=== PATIENT | male | born 1960 | race Caucasian/White ===

== ENCOUNTER 2018-08-05 07:12 | Inpatient (IN) | payer OTHER ==
[2018-08-05] VITALS (71 sets, daily range): BP systolic 81–129; BP diastolic 46–74
[~2018-08-05] VITALS: Ht 170.2 cm; Wt 99.6 kg
--- NOTE | ~2018-08-05 | 2DMMODE ---
[facility] [address] [place] [address] 2 D/M-MODE ECHOCARDIOGRAM Name: SHAUNA REGAN Room #: 201-P [facility] IN .R.#: [id number] Admission: 08/05/18 Attend Phys: Rosenda Rubalcava MD Discharge: Date of : 62 Date of Service: 08/09/18 1255 Report #: [id number] THIS REPORT FOR: //name// APPROVED REPORT Study performed: 08/09/2018 09:30:39 EXAM: Comprehensive 2D, Doppler, and color-flow Echocardiogram Patient Location: In-Patient Room #: 201 BSA: 2.17 BP: 135/80 mmHg Other Information Study Quality: Technically Difficult Technically limited study due to body habitus, inability to position patient. Indications paroxysmal VT, mildly elevated troponin, Hx CVA 2D Dimensions RVDd: 30.50 mm IVSd: 16.40 (7-11mm) LVOT Diam: 23.91 (18-24mm) LVDd: 54.06 mm PWd: 15.55 (7-11mm) Ascending Ao: 28.19 (22-36mm) LVDs: 39.84 (25-40mm) Aortic Root: 36.76 mm Volumes Left Atrial Volume (Systole) Single Plane 4CH: 55.12 mL Single Plane 2CH: 51.47 mL LA ESV Index: 27.00 mL/m2 Aortic Valve AoV Peak Luís.: 1.26 m/s AO Peak Gr.: 6.34 mmHg LVOT Max P.18 mmHg LVOT Max V: 1.02 m/s GORDO Vmax: 3.64 cm2 Mitral Valve E/A Ratio: 0.6 MV Decel. Time: 148.27 ms [facility] [address] [address] 2 D/M-MODE ECHOCARDIOGRAM Name: SHEREENSHAUNA Room #: 201-P [facility] IN ..#: [id number] Admission: 08/05/18 Attend Phys: Rosenda Rubalcava MD Discharge: Date of : 62 Date of Service: 08/09/18 1255 Report #: [id number] MV E Max Luís.: 0.54 m/s MV A Luís.: 0.91 m/s MV PHT: 43.00 ms IVRT: 159.17 ms Pulmonary Valve PV Peak Luís.: 1.20 m/s PV Peak Gr.: 5.78 mmHg Pulmonary Vein P Vein S: 0.65 m/s P Vein A: 0.12 m/s P Vein D: 0.37 m/s P Vein A Dur.: 90.0 msec P Vein S/D Ratio: 1.76 Left Ventricle The left ventricle is normal size. Moderate concentric left ventricular hypertrophy. The left ventricular systolic function is normal. The left ventricular ejection fraction is within the normal range. LVEF is 60-65%. Mild diastolic dysfunction is present (impaired relaxation pattern). Right Ventricle The right ventricle is normal size. The right ventricular systolic function is normal. Atria The left atrium size is normal. The right atrium size is normal. Aortic Valve The aortic valve is normal in structure. No aortic regurgitation is present. There is no aortic valvular stenosis. Mitral Valve The mitral valve is normal in structure. Trace mitral regurgitation. No evidence of mitral valve stenosis. Tricuspid Valve The tricuspid valve is normal in structure. There is no tricuspid valve regurgitation noted. Unable to assess PA pressure. Pulmonic Valve The pulmonary valve is normal in structure. There is no pulmonic valvular regurgitation. Great Vessels The aortic root is normal in size. IVC is not [facility] [employer] [address] [address] 2 D/M-MODE ECHOCARDIOGRAM Name: SHAUNA REGAN JR Room #: 201-P [facility] IN ..#: [id number] Admission: 08/05/18 Attend Phys: Rosenda Rubalcava MD Discharge: Date of : 62 Date of Service: 08/09/18 1255 Report #: [id number] visualized. Pericardium Trivial pericardial effusion. <Conclusion> The left ventricle is normal size. Moderate concentric left ventricular hypertrophy. The left ventricular systolic function is normal. Mild diastolic dysfunction is present (impaired relaxation pattern). The right ventricle is normal size. The left atrium size is normal. The aortic valve is normal in structure. Trace mitral regurgitation. There is no tricuspid valve regurgitation noted. <ELECTRONICALLY SIGNED> By: Wei Moncada MD 08/09/18 1255 1255 1255 Wei Moncada MD /INF
--- NOTE | ~2018-08-05 | EKG ---
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: JENN : 1960 Requested By: Ángel Johnson Order Number: [id number] MD: Tate Galarza Measurements Intervals [place] Rate: 66 P: 2 MN: 184 QRS: 14 QRSD: 107 T: 210 QT: 479 QTc: 502 Interpretive Statements Sinus rhythm Abnormal T, consider ischemia, diffuse leads Prolonged QT interval Compared to ECG 08/05/2018 07:39:01 Sinus tachycardia no longer present atrial premature complexes no longer present Electronically Signed On 08-06-2018 8:40:50 MIXER ATTENDANT by Tate Galarza [email or web address] <ELECTRONICALLY SIGNED> By: Tate Galarza MD, [facility] 08/06/18 0840 0712 1 Tate Galarza MD, [facility] /EPI
--- NOTE | ~2018-08-05 | H ---
[facility] [address] [place] [address] HISTORY AND PHYSICAL Name: SHAUNA HAILE JR Room #: 247-P ADM IN M.R.#: [id number] Admission: 08/05/18 Attend Phys: Rosenda Rubalcava MD Discharge: Date of : 62 Report #: [id number] THIS REPORT FOR: //name// CC: Tom Clark MD [facility] Brennon De Guzman DO DATE OF SERVICE: 08/05/2018 CHIEF COMPLAINT: Coffee-ground emesis and fever. HISTORY OF PRESENT ILLNESS: The patient is a 58-year-old male who presents at the [facility] Emergency Department with the aforementioned complaints. He is a stroke victim who has currently been residing at [facility], across the street from the hospital. Two episodes of coffee-ground emesis were noted starting at midnight last night and then again this morning and this prompted transfer to the Emergency Department. He was also febrile, I am not sure what his temperature was, but I believe it was greater than 100 degrees Fahrenheit. I spoke with Dr. Scales from the Emergency Department after she had done her initial assessment and stabilization on the patient. He is intubated because of respiratory failure presumably due to aspiration and subsequent respiratory failure. The patient himself is unable to give any useful information as for history at this time. PAST MEDICAL HISTORY: Following diagnoses are obtained from the transfer information obtained from [facility] and this includes gallbladder calculi without cholecystitis or obstruction, generalized muscle weakness, digestive tract surgery apparently, cerebral infarction, oropharyngeal dysphagia, type 2 diabetes mellitus, hypertension, gastrostomy/PEG tube, hemiplegia and hemiparesis apparently on right and left sides, allergic rhinitis, constipation, benign prostate hypertrophy, gastroesophageal reflux disease, hyperlipidemia. ALLERGIES: He has no known drug allergies. MEDICATIONS: Artificial tears, loratadine, senna, oxycodone, vitamin D2, Proscar, aspirin, Robitussin-DM, ranitidine, hydrochlorothiazide, Tylenol, metoprolol succinate, pravastatin, amlodipine, bisacodyl suppositories, MiraLax, Coumadin 2.5 mg daily. SOCIAL HISTORY: Other than that the patient is currently living at [facility], I have no social history and cannot obtain any from the patient at this time. [address] [address] HISTORY AND PHYSICAL Name: SHAUNA HAILE JR Room #: 247-P [facility] IN .R.#: [id number] Admission: 08/05/18 Attend Phys: Rosenda Rubalcava MD Discharge: Date of : 62 Report #: [id number] FAMILY HISTORY: I cannot obtain any from the patient at this time. On the facility face sheet from [facility], there are 2 names, Ken Haile [phone], and Amilcar Haile at [phone] for point of contacts, the former is his responsible constitution party. SPECIAL DIET: The patient is on a regular diet with nectar thickened liquids. There is an order for CPR within the contained physician's orders, which I will assume means that the patient has a full code blue status. REVIEW OF SYSTEMS: Unobtainable. PHYSICAL EXAMINATION: VITAL SIGNS: In the Emergency Room on arrival on 15 liters per minute of oxygen (nonrebreather), the oxygen saturation is 87%. Presumably that was prior to intubation. Temperature was 37.3 degrees centigrade, pulse 112, respirations 39 and blood pressure is 112/70. The weight is recorded at 200 pounds. GENERAL: The patient is a middle-aged male who is moderately sedated on the ventilator. He tracks with his eyes and sometimes nods appropriately to questions. NECK: Without adenopathy or thyromegaly or mass. LUNGS: Coarse bilaterally. CARDIAC: Reveals regular rhythm with frequent extrasystoles. ABDOMEN: Soft. PEG tube is in place. EXTREMITIES: Without cyanosis or clubbing or peripheral edema. Good peripheral pulses. He is able to move both lower extremities on command. NEUROLOGIC: Very limited because of the patient's status on the ventilator. This will have to be repeated later. SKIN: Warm to touch at the time of my examination. DIAGNOSTIC DATA: Reviewing telemetry while the patient was having a PICC line placement, he would have runs of 10, 12 or 15 beats of ventricular tachycardia and when that was concluded, he returned to normal sinus rhythm, borderline tachycardic with a rate of 90-100 per minute. EKG shows sinus tachycardia with minimal signs of inferior ischemia. Arterial blood gas shows a pH of 7.366, borderline acidotic with a pCO2 of 33.7, pO2 of 81.6 on the ventilator with respiratory rate of 16, tidal volume of 550, PEEP of 5 and the FiO2 of 60%. The lactic acid level is elevated at 2.89 with a normal of 0-2 millimoles per liter. The chemistry showed a sodium of 140, potassium 3.2, chloride 102, bicarbonate 26, BUN of 33, creatinine 1.6, anion gap is 12. The estimated GFR is 45. The glucose is 199, calcium 8.8, total bilirubin 0.6, AST 17, ALT 15, alkaline phosphatase 73, total protein of 7.7, albumin 3.4. The PT and INR were 40.0 and 3.9 respectively. The PTT was 57.0. CBC shows a white blood cell count of 9300 with no bands on the differential. The hemoglobin is 14.5, hematocrit 43.5, mean cell volume is 77.8, which is microcytic. [facility] [address] [place] [address] HISTORY AND PHYSICAL Name: SHAUNA HAILE Room #: 247-P ADM IN ..#: [id number] Admission: 08/05/18 Attend Phys: Rosenda Rubalcava MD Discharge: Date of : 62 Report #: [id number] is 17.6, which shows proliferative changes consistent with active bone marrow and the platelet count is 208,000. Chest x-ray shows patchy left perihilar and basilar predominantly pulmonary patchy infiltrate suggesting multifocal pneumonia or possibly aspiration in the appropriate setting with probable small layering left pleural effusion. Endotracheal placement is shown to be 2 cm above the mallika. ASSESSMENT AND PLAN: 1. Upper gastrointestinal hemorrhage with secondary aspiration pneumonitis and acute respiratory failure -- Dr. Scales did an excellent job in the Emergency Room stabilizing the patient and getting control of the airway. Dr. De Guzman has been contacted and will be planning to do an endoscopy on the patient tomorrow morning. In the meantime, serial hematology and coagulation studies will be performed to make sure that the patient remains un-anticoagulated until the procedure. At this time, a transfusion does not appear necessary; however, significant dilutional affect is expected given the hypotension that was noted on presentation in the face of bleeding. The patient has been given fresh frozen plasma and vitamin K in the Emergency Department and will receive supplemental doses of each as needed. The patient has been started on intravenous antibiotic therapy with a broad spectrum, is being tested for methicillin-resistant Staphylococcus aureus, and he is intubated and will be seeing the graphics production specialist, Dr. Lopez, in the ICU for further attention to ventilator management. 2. Abnormal EKG with inferior ischemic changes -- I have nothing to compare this with previously and the patient does not have a known history of coronary artery disease. I will get serial cardiac enzymes and a followup EKG in the morning. He does not appear to be in congestive heart failure at this time, but as noted, he has ischemic changes on his baseline EKG here and he had some runs of ventricular tachycardia during the PICC line placement. His case would become particularly high risk, as if it is not already, if he develops any evidence of coronary ischemia. He is not a good candidate for anticoagulation or aggressive antiplatelet therapy at this time. 3. Type 2 diabetes -- sliding scale and serial Accu-Cheks will be pursued. 4. History of hyperlipidemia, gastroesophageal reflux disease, cholelithiasis, prior stroke and oropharyngeal dysphagia are noted and will be managed. 5. Apparent lactic acidosis. We will get a repeat arterial blood gas tomorrow morning prior to permitting the patient to go to upper gastrointestinal endoscopy. I have discussed this case briefly with Dr. Lopez and with Dr. Scales in the Emergency Room and the patient's care will be assumed tomorrow by my colleague, Dr. Rosenda Rubalcava, who manages the patient's care at [facility]. [address] [place] [address] HISTORY AND PHYSICAL Name: SHAUNA HAILE JR Room #: 247-P [facility] IN M.R.#: [id number] Admission: 08/05/18 Attend Phys: Rosenda Rubalcava MD Discharge: Date of : 62 Report #: [id number] At this time, the patient's code status remains full code blue. <ELECTRONICALLY SIGNED> By: Ángel Johnson MD 08/05/18 1447 1316 1401 Ángel Johnson MD /nt
--- NOTE | ~2018-08-05 | HC ---
[facility] [place] [address] CONSULTATION Name: SHAUNA REGAN JR Room #: 247-P ADM IN M.R.#: [id number] Admission: 08/05/18 Attend Phys: Rosenda Rubalcava MD Discharge: Date of : 62 Report #: [id number] THIS REPORT FOR: //name// CC: Brennon Rubalcava DATE OF SERVICE: 08/06/2018 REASON FOR CONSULTATION: I was asked to evaluate concerning healthcare-associated pneumonia. HISTORY OF PRESENT ILLNESS: The patient was a 58-year-old, previous stroke with diabetes, hypertension, snf resident, who presents with coffee-ground emesis associated with fever over 100 degrees. He developed hypotension and is now on vasopressors. He is intubated on FiO2 of 40%. He was awake and able to respond appropriately. Unable to give any further details of his history. He did undergo upper endoscopy, which showed evidence of hiatal hernia with esophageal ulcer as well as gastritis with erosions, duodenitis with erosions. No evidence of active bleeding identified. His hemoglobin dropped from 14 down to 10. He has remained afebrile since his hospitalization yesterday. He is on FiO2 of 40% with minimal tracheal secretions. His chest x-ray showed a left lower lobe infiltrate. His procalcitonin was 7. REVIEW OF SYSTEMS: Ten-point was unable to be completed for the patient was unable to give any details. PAST MEDICAL HISTORY: Cholelithiasis, stroke, diabetes, hypertension, PEG tube placement for dysphagia, constipation, BPH, gastroesophageal reflux, hyperlipidemia. ALLERGIES: None. MEDICATIONS: As noted on his NOV, now including vancomycin and Zosyn. FAMILY HISTORY: Noncontributory. SOCIAL HISTORY: senior care resident. Unclear if he is a smoker or not. PHYSICAL EXAMINATION: GENERAL APPEARANCE: The patient was awake. He was on vasopressors. He was obese. No evidence of peripheral cyanosis. Appeared his stated age. VITAL SIGNS: As noted with currently afebrile on low dose Levophed for blood pressure 117/74 with a MAP of 77, pulse is 69. SKIN: Without lesion or decubitus. No palpable lymphadenopathy. EYES: Without scleral icterus or conjunctivitis. MOUTH: Orally intubated without mucositis or ulcer. [address] [address] CONSULTATION Name: SHAUNA REGAN Room #: 247-P [facility] IN M.R.#: [id number] Admission: 08/05/18 Attend Phys: Rosenda Rubalcava MD Discharge: Date of : 62 Report #: [id number] NECK: Supple with no thyromegaly, mass or JVD. LUNGS: Coarse breath sounds in the left base posteriorly. HEART: Regular, without murmur, gallop or rub. ABDOMEN: Soft, nontender, no hepatosplenomegaly or mass. PEG tube in the left upper abdomen. Site was without drainage or erythema. EXTREMITIES: Without cyanosis, clubbing or edema. NEUROLOGIC: Cranial nerves appeared intact as much as I could evaluate. He was able to move both upper and lower extremities. Sensation to touch was normal. Mood, unable to assess. EXTERNAL GENITALIA: Without mass or lesion with indwelling Emery catheter. LABORATORY STUDIES: Chest x-ray with left lower lobe mid lung infiltrate. Blood, urine and sputum cultures pending. Sodium 142, potassium 3.4, bicarbonate 25, creatinine 0.9. Liver function tests normal. Troponin 0.3. Procalcitonin 7. INR 1.1. Hemoglobin 10, platelet count 155,000, WBC 7 with 85% segs, 11% lymphs. MRSA screen negative. Urinalysis negative. IMPRESSION: 1. A 58-year-old, previous stroke with left lung pneumonia, healthcare associated. 2. Gastrointestinal bleed with anemia. 3. Diabetes. 4. Esophagitis, gastritis, duodenitis with ulcerations. 5. Mild increase in troponin, likely reactive to stress. 6. Gastroesophageal reflux. 7. Obesity. RECOMMENDATION: We will continue IV antibiotic therapy with Zosyn and azithromycin. His MRSA screen was negative. Check legionella, strep pneumo antigens. Follow up chest x-ray and follow CBC. <ELECTRONICALLY SIGNED> By: Nick Perkins MD 08/07/18 1534 1052 1105 Nick Perkins MD /nt
--- NOTE | ~2018-08-05 | PATH ---
[facility] [address] [place] [address] PATHOLOGY RPT PROCEDURE Name: ALEXANDER HAILE JR Room #: 201-P ADM IN M.R.#: [id number] Admission: 08/05/18 Date of : 62 Discharge: Report #: [id number] Path Case #: [id number] [facility] Accession Number: [id number] . 01 Material submitted: . ESOPHAGEAL ULCER BIOPSY . 01 Clinical history: . Pre-OP DX: GI bleed Post-OP DX: Hiatal hernia, esophageal ulcer, gastric erosions, duodenitis . 02 Diagnosis: Squamous mucosa, esophageal ulcer, endoscopic biopsy: - Mild acute esophagitis. - Negative for intestinal metaplasia or dysplasia. (IUV:briana; 08/07/2018) MBR/08/07/2018 . 02 Comment: S fungal special stain is attempted on block A1 and it shows no tissue present. There are no viral inclusions or fungal hyphae identified histologically. There is no dysplasia or malignancy present as well. (IUV:anesthesiologist/physician; 08/07/2018) . 02 Electronically signed: . Doris Armas MD, Pathologist NPI- [id number] . 01 Gross description: . Received in formalin labeled "Alexander Haile Jr, BX of esophageal ulcer," are 2 segments of kaur soft tissue measuring 0.5 x 0.2 x 0.1 cm in aggregate dimensions and ranging from 0.2 to 0.3 cm in maximum dimension. The specimen is submitted entirely in cassette A1. (TSD; 08/06/2018) TOB/TOB . 02 Pathologist provided ICD-10: K20.9 . 02 CPT . 317657 Specimen Comment: A courtesy copy of this report has been sent to Specimen Comment: [phone], . Specimen Comment: Report sent to / DR SNIDER Specimen Comment: A duplicate report has been generated due to demographic updates. Performed at: [address] [place] [address] PATHOLOGY RPT PROCEDURE Name: ALEXANDER HAILE Room #: 201-P [facility] IN M.R.#: [id number] Admission: 08/05/18 Date of : 62 Discharge: Report #: [id number] Path Case #: [id number] [facility] Kika Moncada [address] [place] [address] [address], [id number] MD Pedrito Weiss MD Phone: [phone] Performed at: [address] [id number] MD Doris Armas MD Phone: [phone]
--- NOTE | ~2018-08-05 | EKG ---
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 : 1960 Requested By: Shaye Scales Order Number: [id number] MD: Matthew Vasquez Measurements Intervals [place] Rate: 109 P: 18 IN: 161 QRS: -3 QRSD: 89 T: 197 QT: 333 QTc: 449 Interpretive Statements Sinus tachycardia Low voltage, extremity leads Abnormal T, consider ischemia, diffuse leads No previous ECG available for comparison Electronically Signed On 08-05-2018 23:48:11 INTERNAL SALES ENGINEER by Matthew Vasquez [email or web address] <ELECTRONICALLY SIGNED> By: Matthew Vasquez MD 08/05/18 2348 8 8 Matthew Vasquez MD /NADIA
[2018-08-05 07:46] LABS: ABSOLUTE NEUTROPHILS 7.9 thou/uL (1.4-8.2); BASOPHILS 0.2 % (0.0-2.0); HEMATOCRIT 43.5 % (42.0-52.0); HEMOGLOBIN 14.5 gm/dL (14.0-18.0); MCH 25.9 pg (26.0-34.0); MCHC 33.3 g/dL (28.0-37.0); MCV 77.8 fL (80.0-100.0); MONOCYTES 3.4 % (1.0-8.0); PLATELET COUNT 208 thou/uL (150-400); POLYS 85.4 % (36.0-66.0); RBC 5.59 mil/uL (4.50-6.00); RDW 17.6 % (10.5-14.5); WBC 9.3 thou/uL (4.0-11.0)
[2018-08-05] MEDS ORDERED: SENNA8.6 MG PO (07:48)
[2018-08-05] MEDS ORDERED: CLARITIN10 MG PO (07:48)
[2018-08-05] MEDS ORDERED: ROBITUSSIN100 MG/53 PO (07:49)
[2018-08-05] MEDS ORDERED: OXYCODONE HCL 55 MG PO (07:49)
[2018-08-05] MEDS ORDERED: PROSCAR 5MG TABL5 MG PO (07:49)
[2018-08-05] MEDS ORDERED: VITAMIN D250000 UNIT PO (07:49)
[2018-08-05] MEDS ORDERED: ASPIR 8181 MG PO (07:49)
[2018-08-05] MEDS ORDERED: HYDROCHLOROTH12.5 M1 PO (07:50)
[2018-08-05] MEDS ORDERED: APAP650 PO (07:50)
[2018-08-05] MEDS ORDERED: KAPSPARGO SPRIN50 MG PO (07:50)
[2018-08-05] MEDS ORDERED: PRAVACHOL40 MG PO (07:50)
[2018-08-05] MEDS ORDERED: ZANTAC 150MG T150 MG PO (07:50)
[2018-08-05] MEDS ORDERED: BISACODYL SUPP10 MG RECTAL (07:51)
[2018-08-05] MEDS ORDERED: NORVASC2.5 MG PO (07:51)
[2018-08-05] MEDS ORDERED: COUMADIN 2.5MG2.5 M1 PO (07:51)
[2018-08-05] MEDS ORDERED: MIRALAX17 GM PO (07:51)
[2018-08-05 07:55] LABS: CALCIUM 8.8 mg/dL (8.5-10.1); CREATININE 1.6 mg/dL (0.7-1.3); POTASSIUM 3.2 mmol/L (3.5-5.1)
[2018-08-05 07:56] LABS: INR 3.9
[2018-08-05 08:00] LABS: ALBUMIN 3.4 g/dL (3.4-5.0); TOTAL BILIRUBIN 0.6 mg/dL (<0.1-1.0); TOTAL PROTEIN 7.7 g/dL (6.4-8.2)
[2018-08-05 09:57] LABS: BE(vivo) -5.5 mmol/L (-2 to +3); HCO3 18.9 mmol/L (22.0-26.0); PCO2 33.7 mmHg (35.0-45.0); PO2 81.6 mmHg (80.0-100.0); pH 7.366 (7.360-7.450); sO2 95.8 % (92.0-98.0)
[2018-08-05 13:26] LABS: HEMATOCRIT 38.4 % (42.0-52.0); HEMOGLOBIN 12.6 gm/dL (14.0-18.0)
[2018-08-05 13:39] LABS: PROTIME 18.7 Seconds (9.3-11.4)
[2018-08-05 13:40] LABS: INR 1.8
[2018-08-05 20:38] LABS: INR 1.3; PROTIME 13.3 Seconds (9.3-11.4)
[2018-08-05 21:23] LABS: CREATININE 1.3 mg/dL (0.7-1.3); POTASSIUM 3.8 mmol/L (3.5-5.1)
[2018-08-05 21:26] LABS: INR 1.2; PROTIME 12.6 Seconds (9.3-11.4)
[2018-08-05 22:41] LABS: URINE BILIRUBIN NEGATIVE (Negative); URINE BLOOD 3+ (Negative); URINE CLARITY CLOUDY; URINE COLOR YELLOW; URINE GLUCOSE-RANDOM* NEGATIVE (Negative); URINE KETONES TRACE (Negative); URINE LEUKOCYTES 1+ (Negative); URINE NITRITE NEGATIVE (Negative); URINE PROTEIN (DIPSTICK) 1+ (Negative); URINE SPECIFIC GRAVITY >= 1.030 (1.005-1.035); URINE UROBILINOGEN 0.2 E.U./dl (0.2-1.0)
[2018-08-05 22:48] LABS: MUCUS 0-3 Light strn/LPF (None Seen); RENAL EPITHELIAL CELLS 0-3 Few /LPF (None Seen); SQUAMOUS None Seen /LPF (0-3); TRANSITIONAL EPITHEL CELL 4-10 Moderate /LPF (None Seen); WBC CLUMPS Occasional (None Seen)
[2018-08-05 22:49] LABS: AMORPHOUS URATES Many /LPF (None Seen); BACTERIA 1-9 Few /HPF (None Seen); CASTS None Seen /LPF (None Seen); CRYSTALS None Seen /LPF (None Seen); URINE RBC 3-10 Few /HPF (0-2); URINE WBC 6-15 Few /HPF (0-5)
[2018-08-06] VITALS (170 sets, daily range): BP systolic 92–134; BP diastolic 45–90
[2018-08-06 03:47] LABS: BE(vivo) -3.2 mmol/L (-2 to +3); HCO3 20.6 mmol/L (22.0-26.0); PCO2 32.8 mmHg (35.0-45.0); PO2 80.5 mmHg (80.0-100.0); pH 7.416 (7.360-7.450); sO2 96.2 % (92.0-98.0)
[2018-08-06 05:53] LABS: HEMATOCRIT 31.3 % (42.0-52.0); MCH 25.5 pg (26.0-34.0); MCHC 32.5 g/dL (28.0-37.0); MCV 78.4 fL (80.0-100.0); RBC 3.99 mil/uL (4.50-6.00); RDW 17.7 % (10.5-14.5)
[2018-08-06 05:54] LABS: HEMOGLOBIN 10.2 gm/dL (14.0-18.0)
[2018-08-06 05:59] LABS: CREATININE 0.9 mg/dL (0.7-1.3); POTASSIUM 3.4 mmol/L (3.5-5.1)
[2018-08-06 06:03] LABS: INR 1.1
[2018-08-06 06:08] LABS: TROPONIN-I 0.31 ng/mL (<0.06)
[2018-08-06 09:37] LABS: HEMATOCRIT 29.9 % (42.0-52.0)
[2018-08-06 09:45] LABS: INR 1.1
[2018-08-07] VITALS (33 sets, daily range): BP systolic 80–121; BP diastolic 35–66
[2018-08-07 04:14] LABS: CALCIUM 7.6 mg/dL (8.5-10.1); CREATININE 0.9 mg/dL (0.7-1.3)
[2018-08-07 04:20] LABS: PROTIME 10.3 Seconds (9.3-11.4)
[2018-08-07 04:30] LABS: HEMATOCRIT 29.1 % (42.0-52.0); HEMOGLOBIN 9.4 gm/dL (14.0-18.0); MCH 25.5 pg (26.0-34.0); MCHC 32.2 g/dL (28.0-37.0); MCV 79.2 fL (80.0-100.0); RBC 3.67 mil/uL (4.50-6.00); RDW 17.9 % (10.5-14.5)
[2018-08-07 09:49] LABS: HEMATOCRIT 25.9 % (42.0-52.0); HEMOGLOBIN 8.6 gm/dL (14.0-18.0)
[2018-08-07 11:01] LABS: HCO3 21.2 mmol/L (22.0-26.0); PCO2 34.4 mmHg (35.0-45.0); PO2 145.4 mmHg (80.0-100.0); pH 7.407 (7.360-7.450); sO2 98.9 % (92.0-98.0)
[2018-08-07 13:27] LABS: MAGNESIUM 2.3 mg/dL (1.8-2.4); TROPONIN-I 0.19 ng/mL (<0.06)
[2018-08-07 13:31] LABS: POTASSIUM 2.9 mmol/L (3.5-5.1)
[2018-08-07 19:44] LABS: MAGNESIUM 1.9 mg/dL (1.8-2.4); POTASSIUM 3.2 mmol/L (3.5-5.1)
[2018-08-08] VITALS (19 sets, daily range): BP systolic 89–137; BP diastolic 53–84
[2018-08-08 04:05] LABS: PROTIME 10.8 Seconds (9.3-11.4)
[2018-08-08 04:21] LABS: HEMATOCRIT 27.9 % (42.0-52.0); HEMOGLOBIN 9.4 gm/dL (14.0-18.0); MCH 26.4 pg (26.0-34.0); MCHC 33.8 g/dL (28.0-37.0); MCV 78.2 fL (80.0-100.0); RBC 3.57 mil/uL (4.50-6.00); RDW 17.4 % (10.5-14.5); WBC 8.7 thou/uL (4.0-11.0)
[2018-08-08 04:25] LABS: CALCIUM 7.5 mg/dL (8.5-10.1); CREATININE 0.6 mg/dL (0.7-1.3); POTASSIUM 4.1 mmol/L (3.5-5.1)
[2018-08-08 09:57] LABS: HEMATOCRIT 28.6 % (42.0-52.0); HEMOGLOBIN 9.5 gm/dL (14.0-18.0)
[2018-08-09 00:20] VITALS: BP 168/72
[2018-08-09 02:10] LABS: ADENOVIRUS Negative (Negative); INFLUENZA A Negative (Negative); INFLUENZA B Negative (Negative); METAPNEUMOVIRUS Negative (Negative); PARAINFLUENZA 1 Negative (Negative); PARAINFLUENZA 2 Negative (Negative); PARAINFLUENZA 3 Negative (Negative); RHINOVIRUS Negative (Negative); RSV A Negative (Negative); RSV B Negative (Negative)
[2018-08-09 03:25] VITALS: BP 130/80
[2018-08-09 07:58] VITALS: BP 135/80
[2018-08-09 10:55] VITALS: BP 142/88
[2018-08-09 11:34] LABS: HEMATOCRIT 32.7 % (42.0-52.0); HEMOGLOBIN 10.6 gm/dL (14.0-18.0)
[2018-08-09 19:56] VITALS: BP 144/90
[2018-08-10 04:21] LABS: HEMATOCRIT 32.2 % (42.0-52.0); HEMOGLOBIN 10.5 gm/dL (14.0-18.0); MCH 25.7 pg (26.0-34.0); MCHC 32.6 g/dL (28.0-37.0); RBC 4.07 mil/uL (4.50-6.00); RDW 17.5 % (10.5-14.5); WBC 8.3 thou/uL (4.0-11.0)
[2018-08-10 04:37] LABS: CALCIUM 8.1 mg/dL (8.5-10.1); CREATININE 0.7 mg/dL (0.7-1.3); POTASSIUM 3.6 mmol/L (3.5-5.1)
[2018-08-10 04:47] LABS: PROTIME 18.1 Seconds (9.3-11.4)
[2018-08-10 04:50] LABS: INR 1.7
[2018-08-10 05:27] VITALS: BP 138/88
[2018-08-10 16:00] VITALS: BP 137/84
[2018-08-10 19:20] VITALS: BP 137/82
[2018-08-11 03:50] VITALS: BP 127/78
[2018-08-11 04:49] LABS: HEMATOCRIT 32.3 % (42.0-52.0); HEMOGLOBIN 10.8 gm/dL (14.0-18.0)
[2018-08-11 08:20] VITALS: BP 135/67
[2018-08-11 11:51] VITALS: BP 142/74
[2018-08-11 16:31] VITALS: BP 137/72
[2018-08-11 20:45] VITALS: BP 134/68
[2018-08-12 05:25] VITALS: BP 125/81
[2018-08-12 05:42] LABS: HEMATOCRIT 31.9 % (42.0-52.0); HEMOGLOBIN 10.6 gm/dL (14.0-18.0); MCH 26.1 pg (26.0-34.0); MCHC 33.3 g/dL (28.0-37.0); MCV 78.4 fL (80.0-100.0); RBC 4.07 mil/uL (4.50-6.00); RDW 17.7 % (10.5-14.5)
[2018-08-12 05:52] LABS: PROTIME 32.5 Seconds (9.3-11.4)
[2018-08-12 05:53] LABS: CALCIUM 8.4 mg/dL (8.5-10.1); CREATININE 0.8 mg/dL (0.7-1.3); POTASSIUM 3.8 mmol/L (3.5-5.1)
[2018-08-12 05:58] LABS: INR 3.1
[2018-08-12 07:22] VITALS: BP 125/79
[2018-08-12 08:18] LABS: HEMATOCRIT 32.5 % (42.0-52.0); HEMOGLOBIN 10.7 gm/dL (14.0-18.0)
[2018-08-12 11:40] VITALS: BP 132/69
[2018-08-12] MEDS ORDERED: METRONIDAZOLE500 M4 PER TUBE (12:59)
[2018-08-12] MEDS ORDERED: AMOXICILLI250 MG/51 PER TUBE (12:59)
[2018-08-12] MEDS ORDERED: IPRAT-ALBUT 0.5-3 ML INH (13:00)
[2018-08-12] MEDS ORDERED: COUMADIN 2 MG TA2 M1 PO (13:00)
[2018-08-12] MEDS ORDERED: PANTOPRAZOLE SO40 M1 PO (13:02)
[2018-08-12 15:43] VITALS: BP 150/86
== END 2018-08-12 17:54 | DRG 871 ==
LOC: ER 07:12 → ICU 09:56 → EROBS 09:56 → ICU 10:35 → 2N 08-08 17:36
PROVIDERS: Hospitalist; Internal Medicine; Internal Medicine Infectious Disease; Internal Medicine Pulmonary Disease; Specialist; Student in an Organized Health Care Education/Training Program
DX: A41.9 Sepsis, unspecified organism (principal); J69.0 Pneumonitis due to inhalation of food and vomit; J96.01 Acute respiratory failure with hypoxia; K22.11 Ulcer of esophagus with bleeding; K25.4 Chronic or unspecified gastric ulcer with hemorrhage; K26.4 Chronic or unspecified duodenal ulcer with hemorrhage; K29.91 Gastroduodenitis, unspecified, with bleeding; G82.50 Quadriplegia, unspecified; D68.9 Coagulation defect, unspecified; D62 Acute posthemorrhagic anemia; I69.354 Hemiplegia and hemiparesis following cerebral infarction affecting left non-dominant side; I69.351 Hemiplegia and hemiparesis following cerebral infarction affecting right dominant side; E87.2 Acidosis; N39.0 Urinary tract infection, site not specified; R57.9 Shock, unspecified; N17.9 Acute kidney failure, unspecified; I47.2 Ventricular tachycardia; J98.11 Atelectasis; K21.9 Gastro-esophageal reflux disease without esophagitis; I10 Essential (primary) hypertension; N40.0 Benign prostatic hyperplasia without lower urinary tract symptoms; E78.5 Hyperlipidemia, unspecified; Y95 Nosocomial condition; E87.6 Hypokalemia; K44.9 Diaphragmatic hernia without obstruction or gangrene; K59.00 Constipation, unspecified; E11.51 Type 2 diabetes mellitus with diabetic peripheral angiopathy without gangrene; E11.43 Type 2 diabetes mellitus with diabetic autonomic (poly)neuropathy; K31.84 Gastroparesis; E66.9 Obesity, unspecified; Z68.34 Body mass index [BMI] 34.0-34.9, adult; Z93.1 Gastrostomy status; Z79.01 Long term (current) use of anticoagulants; Z79.82 Long term (current) use of aspirin; Z79.899 Other long term (current) drug therapy
CPT/HCPCS: 10078; 10081

== ENCOUNTER 2021-08-13 10:02 | Inpatient (IN) | payer OTHER ==
[~2021-08-13] VITALS: Ht 167.6 cm; Wt 93.0 kg
[~2021-08-13 10:02] MED LIST: AMOXICILLI250 MG/51 PER TUBE; APAP650 PO; ASPIR 8181 MG PO; BISACODYL SUPP10 MG RECTAL; CLARITIN10 MG PO; COUMADIN 2 MG TA2 M1 PO; COUMADIN 2.5MG2.5 M1 PO; HYDROCHLOROTH12.5 M1 PO; IPRAT-ALBUT 0.5-3 ML INH; KAPSPARGO SPRIN50 MG PO; METRONIDAZOLE500 M4 PER TUBE; MIRALAX17 GM PO; NORVASC2.5 MG PO; OXYCODONE HCL 55 MG PO; PANTOPRAZOLE SO40 M1 PO; PRAVACHOL40 MG PO; PROSCAR 5MG TABL5 MG PO; ROBITUSSIN100 MG/53 PO; SENNA8.6 MG PO; VITAMIN D250000 UNIT PO; ZANTAC 150MG T150 MG PO
[2021-08-13 10:06] VITALS: BP 116/81
[2021-08-13 10:24] LABS: ABSOLUTE NEUTROPHILS 8.1 thou/uL (1.4-8.2); BASOPHILS 0.7 % (0.0-2.0); EOSINOPHILS 0.1 % (0.0-3.0); HEMATOCRIT 50.3 % (42.0-52.0); HEMOGLOBIN 16.7 gm/dL (14.0-18.0); MCH 28.1 pg (26.0-34.0); MCHC 33.2 g/dL (28.0-37.0); MCV 84.5 fL (80.0-100.0); MONOCYTES 5.3 % (1.0-8.0); PLATELET COUNT 200 thou/uL (150-400); POLYS 79.9 % (36.0-66.0); RBC 5.95 mil/uL (4.50-6.00); RDW 14.7 % (10.5-14.5); WBC 10.2 thou/uL (4.0-11.0)
[2021-08-13 10:41] LABS: ALBUMIN 3.4 g/dL (3.4-5.0); CALCIUM 8.9 mg/dL (8.5-10.1); CREATININE 0.7 mg/dL (0.7-1.3); TOTAL BILIRUBIN 1.3 mg/dL (0.2-1.0); TOTAL PROTEIN 7.4 g/dL (6.4-8.2)
[2021-08-13 10:48] LABS: POTASSIUM 3.5 mmol/L (3.5-5.1)
[2021-08-13] MEDS ORDERED: LEVOTHYROXINE50 MCG PO (10:51)
[2021-08-13] MEDS ORDERED: METOPROLOL SUCC25 M1 PO (11:47)
[2021-08-13 23:07] VITALS: BP 101/74
[2021-08-13 23:38] VITALS: BP 119/72
[2021-08-14 00:41] VITALS: BP 109/75
--- NOTE | 2021-08-14 04:29 | NUR ---
ADMITTED THIS PATIENT FROM THE EMERGENCY AT AROUND 12 MIDNIGHT.ON ROOM AIR BREATHING SPONTANEOUSLY.ASSESSMENT DONE CHARTED.ADMSSION HISTORY AND ASSESSMENT COMPLETED WITH LIMITED INFORMATIONS BECAUSE PATIENT HAS EXPRESSIVE APHASIA AND WITH LITED VERBAL RESPONSE.INFORMED BUSINESS ANALYSIS PROFESSIONAL OF THIS ADMISSION AND CLARIFIED FOR ORDERS NEEDED. PER BUSINESS ANALYSIS PROFESSIONAL TO KEEP PATIENT ON NPO.ALL NEEDS ATTENDED.TO CONTINOUSLY MONITOR.
[2021-08-14 04:37] VITALS: BP 123/71
[2021-08-14 08:05] VITALS: BP 122/78
--- NOTE | 2021-08-14 11:29 | NUR ---
TOOK OVER CARE OF THIS PATIENT AT 0700. PATIENT RESTING IN BED DURING REPORT. PT HX OF CVA; PT HAS LIMITED COMMUNICATION ABILITY BUT USING IPAD AND MOUTHS WORDS. PT GIVEN BED BATH THIS AM. PT REMAINS NPO WITH PROTONIX INFUSING. PT DENIES ANY PAIN; REPOSITIONED AND PROVIDED SKIN CARE. FALL PRECAUTIONS IN PLACE. SOFT-TOUCH CALL LIGHT PROVIDED. WILL CONTINUE TO MONITOR.
[2021-08-14 11:55] VITALS: BP 132/77
[2021-08-14 12:29] LABS: PROTIME 48.7 Seconds (10.5-12.1)
[2021-08-14 12:39] LABS: INR 4.82
--- NOTE | 2021-08-14 14:49 | NUR ---
paged dr. calvin regarding patients continued coffee ground emesis. dr. velasquez gave verbal orders to stop the IV protonix but dr. calvin wants to continue the protonix and keep patient NPO. will continue to monitor.
--- NOTE | 2021-08-14 17:37 | NUR ---
DR. CORMIER CALLED BACK REGARDING PATIENTS COFFEE GROUND EMESIS. WOULD LIKE TO RECHECK HEMOGLOBIN AND HEMATOCRIT IN THE AM. NO OTHER NEW ORDERS AT THIS TIME.
--- NOTE | 2021-08-14 18:55 | NUR ---
PATIENT HAD ANOTHER EPISODE OF COFFEE GROUND EMESIS; PATIENT MORE TACHYCARDIC, DIAPHORETIC AND ERYTHEMA. PT APPEARS UNCOMFORTABLE. ADMINISTERED PRN PAIN MEDICATION. BP CHECKED; BLOOD SUGAR CHECKED WAS 181. STAT PAGED MOHINI AND DR. CORMIER. DR. CORMIER WANTED A STAT CBC BUT DID NOT GIVE ANY OTHER ORDERS. PT SITTING WITH HOB ELEVATED. PLACED PATIENT ON 3 L O2 VIA NC DUE TO INCREASED RESPIRATORY RATE. WILL CONTINUE TO MONITOR. CALLED LAB ABOUT STAT CBC LAB AT 1850.
[2021-08-14 19:22] LABS: HEMATOCRIT 48.3 % (42.0-52.0); HEMOGLOBIN 16.3 gm/dL (14.0-18.0); MCH 28.6 pg (26.0-34.0); MCHC 33.8 g/dL (28.0-37.0); MCV 84.6 fL (80.0-100.0); PLATELET COUNT 189 thou/uL (150-400); RBC 5.71 mil/uL (4.50-6.00); RDW 14.8 % (10.5-14.5); WBC 7.1 thou/uL (4.0-11.0)
--- NOTE | 2021-08-14 19:43 | NUR ---
THIS NURSE SPOKE WITH DR. BLUE. DR. BLUE ORDERED LACTATED RINGERS TO BE INFUSED NOW AND TO WAIT ON RESULTS OF STAT CBC. PT REMAINS NPO DUE TO CONTINUED COFFEE GROUND EMESIS. REPORT GIVEN TO ZEHRA SEBASTIAN.
[2021-08-14 19:58] LABS: ABSOLUTE NEUTROPHILS 5.6 thou/uL (1.4-8.2); ATYPICAL LYMPHS 10 %; METAMYELOCYTES 1 %
[2021-08-14 20:10] VITALS: BP 107/66
[2021-08-14 21:33] LABS: HEMATOCRIT 46.3 % (42.0-52.0); HEMOGLOBIN 15.3 gm/dL (14.0-18.0)
[2021-08-15 04:24] VITALS: BP 129/90
--- NOTE | 2021-08-15 04:30 | NUR ---
Assumed pt care at 1900. Pt is alert. No sign of distress noted. No coffee ground emesis noted during the shift. Normal slaing ordered by physician. Assessmemt completed and documented. Scheduled meds administered to pt. No acute event noted during the night. Continue to monitor. No further needs at this time.
--- NOTE | 2021-08-15 05:27 | NUR ---
After a 1L of fluid and continuous normal saline no urine output, Bladder scan was done and urine in bladded is noted to be 205. Monitor patient for urinary retention.
[2021-08-15 08:00] VITALS: BP 110/66
[2021-08-15 11:30] VITALS: BP 111/69
[2021-08-15 16:00] VITALS: BP 116/57
--- NOTE | 2021-08-15 19:38 | NUR ---
Pt was A&Ox4. VS stable and remained afebrile throughout shift. Pt was able to communicate well. Pt had productive cough throughout shift with sputum - started out greenish brown and progressed to white in color. Pt was progressed from NPO back too his regulare diet; pureed diet with nectar thick was ordered. No concerns. Continue to [facility].
[2021-08-15 20:01] VITALS: BP 114/74
[2021-08-16 04:04] VITALS: BP 121/66
--- NOTE | 2021-08-16 05:19 | NUR ---
Assumed pt care 1900. Pt is alert and oriented. No sign of distress noted in pt. Pt is alert, and responsive. Assessment completed and documented. Denies pain. Scheduled meds adminstered to pt. Continue to monitor. No further needs at this time.
[2021-08-16 08:00] VITALS: BP 125/75
[2021-08-16 12:00] VITALS: BP 112/55
[2021-08-16 12:29] LABS: HEMATOCRIT 43.4 % (42.0-52.0); HEMOGLOBIN 14.2 gm/dL (14.0-18.0); MCH 28.3 pg (26.0-34.0); MCHC 32.8 g/dL (28.0-37.0); MCV 86.4 fL (80.0-100.0); RBC 5.02 mil/uL (4.50-6.00); RDW 15.4 % (10.5-14.5); WBC 3.8 thou/uL (4.0-11.0)
[2021-08-16 12:36] LABS: CALCIUM 8.2 mg/dL (8.5-10.1); CREATININE 1.1 mg/dL (0.7-1.3); POTASSIUM 3.3 mmol/L (3.5-5.1)
[2021-08-16 12:41] LABS: INR 3.44; PROTIME 35.4 Seconds (10.5-12.1)
--- NOTE | 2021-08-16 14:36 | NUR ---
Nutrition: Recommend discontinue IVFs now that pt on tube feeds and water flushes
[2021-08-16 17:00] VITALS: BP 113/57
--- NOTE | 2021-08-16 17:02 | NUR ---
At start of shift pt was awake calm and cooperative. VS stable and pt afebrile throughout shift. Pt was evaluated by speech therapy to evaluate swallowing ability - speech therapist stated that pt was not safe to eat or drink anything by mouth and scheduled a video swallow exam. Pt did not pass video swallow exam and was made NPO by . Preschool Teacher'S Assistant added tube feediing for pt. Pt had bouts of coughing and emesis (bile color and consitency). After returning to unit from video swallow exam pt has been sleeping and resting in bed. No current concerns, Will continue to monitor.
[2021-08-16 19:48] VITALS: BP 105/64
[2021-08-17 05:02] VITALS: BP 110/68
[2021-08-17 07:55] VITALS: BP 102/58
--- NOTE | 2021-08-17 07:56 | NUR ---
PT RESTING QUIETLY THRU THE NOC, REPOSITIONED AND CLEANED UP FROM IN[employer]T EPISODES, ABLE TO USE CALL LIGHT IF PLACED IN RANGE, TF STARTED AND ADVANCED TO 45ML/HR WITH NO RESIDUALS, IV FLUIDS INFUSING IN R HAND, VSS, NO C/O PAIN, REPORT GIVEN TO NEXT SHIFT TO CON'T PPOC
[2021-08-17 09:41] LABS: HEMATOCRIT 40.9 % (42.0-52.0); HEMOGLOBIN 13.5 gm/dL (14.0-18.0); MCH 28.5 pg (26.0-34.0); MCHC 32.9 g/dL (28.0-37.0); MCV 86.7 fL (80.0-100.0); RBC 4.71 mil/uL (4.50-6.00); RDW 15.4 % (10.5-14.5); WBC 6.2 thou/uL (4.0-11.0)
[2021-08-17 09:57] LABS: INR 2.87; PROTIME 29.8 Seconds (10.5-12.1)
[2021-08-17 10:08] LABS: ALBUMIN 2.4 g/dL (3.4-5.0); CALCIUM 8.2 mg/dL (8.5-10.1); CREATININE 0.7 mg/dL (0.7-1.3); POTASSIUM 3.4 mmol/L (3.5-5.1); TOTAL BILIRUBIN 2.4 mg/dL (0.2-1.0); TOTAL PROTEIN 6.1 g/dL (6.4-8.2)
[2021-08-17 11:44] VITALS: BP 99/55
--- NOTE | 2021-08-17 12:10 | NUR ---
Spoke with patients mother. Patient admits with GI bleed, he uses a touch board to communicate. Patient with prev CVA. Patient is senior care care resident of [facility]. He has peg tube. Spoke with patients mother plan return to [facility] once stable. patient may dc today. Updated facility of possible dc today. [facility] following.
[2021-08-17 15:57] VITALS: BP 124/69
--- NOTE | 2021-08-17 16:07 | NUR ---
REPORT CALLED TO NADYA NAVARRETE AT [facility].
--- NOTE | 2021-08-17 17:34 | NUR ---
DISCHARGED PT TO [facility]. ASSISTED TRANSPORT CREW WITH MOVING PT FROM BED TO COT WITHOUT INCIDENT. SENT PAPERWORK WITH CREW.
== END 2021-08-17 17:40 | DRG 377 ==
LOC: ER 10:02 → 2N 13:16 → EROBS 13:16 → 2N 08-14 00:23
PROVIDERS: Emergency Medicine; Internal Medicine Gastroenterology; ADMIT Internal Medicine; ATTEND Internal Medicine
DX: K27.4 Chronic or unspecified peptic ulcer, site unspecified, with hemorrhage (principal); G82.50 Quadriplegia, unspecified; I69.351 Hemiplegia and hemiparesis following cerebral infarction affecting right dominant side; I69.354 Hemiplegia and hemiparesis following cerebral infarction affecting left non-dominant side; Z20.822 Contact with and (suspected) exposure to COVID-19; K21.9 Gastro-esophageal reflux disease without esophagitis; E11.9 Type 2 diabetes mellitus without complications; I10 Essential (primary) hypertension; K59.00 Constipation, unspecified; R53.81 Other malaise; R13.10 Dysphagia, unspecified; E66.01 Morbid (severe) obesity due to excess calories; Z68.33 Body mass index [BMI] 33.0-33.9, adult; Z93.1 Gastrostomy status; I69.320 Aphasia following cerebral infarction; I69.391 Dysphagia following cerebral infarction; Z79.899 Other long term (current) drug therapy; Z28.21 Immunization not carried out because of patient refusal; Z23 Encounter for immunization
CPT/HCPCS: 10081